=== PATIENT | male | born 1960 ===

== ENCOUNTER 2016-08-31 12:35 | Emergency (ER) | payer OTHER ==
[2016-08-31 12:43] VITALS: BMI 24.3
[2016-08-31 12:52] VITALS: BP 116/70; PULSE 61; RESP 18; TEMP 97.7; O2SAT 97
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
== END 2016-08-31 14:16 | disposition home or self-care (01) ==
LOC: C.ER 12:35
DX: S73.102A Unspecified sprain of left hip, initial encounter (principal); V89.2XXA Person injured in unspecified motor-vehicle accident, traffic, initial encounter; M54.6 Pain in thoracic spine